=== PATIENT | female | born 1980 | race Caucasian/White ===

== ENCOUNTER → 2017-11-08 | Outpatient (CLI) | payer MEDICAID | END | disposition home or self-care (01) | LOC: EKG 09:26 | DX: C50.919 Malignant neoplasm of unspecified site of unspecified female breast (principal) | CPT/HCPCS: 93306 ==

== ENCOUNTER 2017-11-30 07:11 | Day surgery (SDC) | payer MEDICAID ==
[2017-11-30] MEDS ORDERED: CEFAZOLIN 1 GM/50 ML (PMX) 50 ML IVPB (10:00)
[2017-11-30] MEDS: SOD CHLORIDE 0.9% 1,000 ML IV (10:15)
[2017-11-30] MEDS: CEFAZOLIN 1 GM/50 ML (PMX) 50 ML IVPB (10:15)
[2017-11-30] MEDS: DIPHENHYDRAMINE 50 MG INJ (10:30)
[2017-11-30] MEDS: FENTAnyl 50 MCG/ML VIAL (10:41)
[2017-11-30] MEDS: LIDOCAINE 1%/EPI 30 ML INJ INJ (10:43)
[2017-11-30] MEDS: POLYMYXIN/BACITRACIN 1L IRRIG IRR (10:50)
[2017-11-30] MEDS: HEPARIN 1000 UNITS/ML 10 ML INJ (10:55)
[2017-11-30] MEDS ORDERED: HYDROCODONE/APAP (5/325) TAB PO (11:30)
== END 2017-11-30 13:45 | disposition home or self-care (01) ==
LOC: SDS 07:11
DX: C50.912 Malignant neoplasm of unspecified site of left female breast (principal)
CPT/HCPCS: 36561; 76942